=== PATIENT | male | born 1945 | race Caucasian/White ===

== ENCOUNTER 2018-12-24 10:50 | Day surgery (SDC) | payer MEDICARE ==
[~2018-12-24] VITALS: Ht 175.3 cm; Wt 103.4 kg
[~2018-12-24 10:50] MED LIST: AMARYL1 M1 PO; AMLODIPINE BESYL5 MG PO; BAYER ASA325 MG PO; COZAAR100 MG PO; DOXAZOSIN PO; JANUVIA50 MG PO; LATANOPROST0.005 % OP; LEVOTHROID125 MCG PO; LEVOTHYROXIN175 MC1 PO; METOPROLOL SUCC25 MG PO; OMEPRAZOLE20 M2 PO; RAPAFLO8 MG PO; SG ASA LOW81 M1 PO; VALSARTAN320 MG PO; VALTAREN; VALTAREN TOP; ZOCOR20 M1 PO
[2018-12-24 11:49] LABS: HEMATOCRIT 39.1 % (39.0-50.0); HEMOGLOBIN 13.1 g/dl (14.0-18.0); IMMATURE GRANULOCYTES 0.7 % (0.0-5.0); MEAN CELL VOLUME 99.7 fL CALC (80.0-100.0); MEAN CORPUSCULAR HGB 33.4 pG CALC (26.0-32.0); MEAN CORPUSCULAR HGB CONC 33.5 g/L CALC (32.0-36.0); NEUT# 2.55 thou/uL (1.82-7.42); RED BLOOD COUNT 3.92 mill/uL (4.70-6.10); RED CELL DISTRI WIDTH 13.3 % (11.5-15.5)
[2018-12-24 11:53] LABS: ALBUMIN 3.8 g/dL (3.2-5.0); BILIRUBIN, TOTAL 1.3 mg/dL (0.0-1.4); CREATININE 1.4 mg/dL (0.7-1.3); INTERNATIONAL NORMALIZED RATIO 1.3 RATIO (0.7-1.3); POTASSIUM 4.5 mmol/l (3.5-5.1); PROTHROMBIN TIME 13.3 SECONDS (9.0-12.5); TOTAL PROTEIN 6.5 g/dL (6.3-8.2)
[2018-12-24 12:41] VITALS: BP 130/76
== END 2018-12-24 12:55 | disposition home or self-care (01) ==
LOC: ENDO 10:50
PROVIDERS: ATTEND Internal Medicine Gastroenterology
PROC: 0DB78ZX Excision of Stomach, Pylorus, Via Natural or Artificial Opening Endoscopic, Diagnostic (ICD-10-PCS; principal; 2018-12-24)
DX: K74.60 Unspecified cirrhosis of liver (principal); I85.10 Secondary esophageal varices without bleeding; K29.50 Unspecified chronic gastritis without bleeding; K31.9 Disease of stomach and duodenum, unspecified; R16.1 Splenomegaly, not elsewhere classified; I10 Essential (primary) hypertension; E11.51 Type 2 diabetes mellitus with diabetic peripheral angiopathy without gangrene; R77.2 Abnormality of alphafetoprotein; R79.89 Other specified abnormal findings of blood chemistry; Z87.891 Personal history of nicotine dependence